=== PATIENT | female | born 1980 | race Caucasian/White ===

== ENCOUNTER 2016-12-07 11:01 | Inpatient (IN) | payer BC ==
[~2016-12-07] VITALS: Ht 157.5 cm; Wt 78.0 kg
[2016-12-07] VITALS (12 sets, daily range): BP systolic 138–179; BP diastolic 75–111
[2016-12-07 12:41] LABS: EOSINOPHIL (%) 0.4 % (0-5); HEMATOCRIT 40.3 % (36.0-46.0); IMMATURE GRANULOCYTE (%) 0.4 % (0.0-0.7); LYMPHOCYTE COUNT 1.3 K/uL (1.0-2.8); MCH 32.4 PG (29.0-34.0); MCHC 34.2 G/DL (30.0-36.0); MCV 94.6 FL (83-99); MEAN PLAT.VOLUME 11.9 uM^3 (9.5-12.4); MONOCYTE (%) 9.3 % (3-12); MONOCYTE COUNT 0.7 K/uL (0-0.8); PLATELET COUNT 117 K/uL (156-360); RBC DIS.WIDTH-CV 14.3 % (11.8-14.6); RBC DIS.WIDTH-SD 48.2 % (39-53); RED BLOOD COUNT 4.26 M/uL (3.80-5.20); WHITE BLOOD COUNT 7.1 K/uL (4.1-10.2)
[2016-12-07 13:09] LABS: ALKALINE PHOSPHATASE 227 IU/L (3-129); ANION GAP 9 MEQ/L (2-14); CHLORIDE 109 MEQ/L (99-109); GFR ESTIMATE (CALCULATED) > 59 mL/min/; GLUCOSE 77 mg/dL (70-99); POTASSIUM 4.2 MEQ/L (3.7-5.4); SAMPLE HEMOLYSIS CHECK 0; SAMPLE ICTERIC CHECK 0; SAMPLE LIPEMIA CHECK 0; SODIUM 139 MEQ/L (136-147); TOTAL BILIRUBIN 0.5 MG/DL (0.0-1.0); UREA NITROGEN (BUN) 25 mg/dL (9-23)
[2016-12-07 19:47] LABS: POINT-OF-CARE METER ID UU13113675
[2016-12-08] VITALS (18 sets, daily range): BP systolic 107–128; BP diastolic 64–86
[2016-12-08 00:47] LABS: EOSINOPHIL (%) 0 % (0-5); HEMATOCRIT 37.8 % (36.0-46.0); IMMATURE GRANULOCYTE (%) 0.5 % (0.0-0.7); IMMATURE GRANULOCYTE COUNT 0.1 K/uL; INSTRUMENT ABS NEUTROPHIL CT 15.5 K/uL; LYMPHOCYTE COUNT 1.2 K/uL (1.0-2.8); MCH 31.7 PG (29.0-34.0); MCHC 33.6 G/DL (30.0-36.0); MCV 94.3 FL (83-99); MEAN PLAT.VOLUME 12.9 uM^3 (9.5-12.4); MONOCYTE (%) 4.6 % (3-12); MONOCYTE COUNT 0.8 K/uL (0-0.8); NEUTROPHIL (%) 88.1 % (45-76); NEUTROPHIL COUNT 15.5 K/uL (1.8-6.4); RBC DIS.WIDTH-CV 14.1 % (11.8-14.6); RBC DIS.WIDTH-SD 48.8 % (39-53); RED BLOOD COUNT 4.01 M/uL (3.80-5.20); WHITE BLOOD COUNT 17.6 K/uL (4.1-10.2)
[2016-12-08 00:48] LABS: PLATELET COUNT 156 K/uL (156-360)
[2016-12-08 00:53] LABS: CHLORIDE 106 mEq/L (99-109); POTASSIUM 4.1 mEq/L (3.7-5.4); SODIUM 135 mEq/L (136-147)
[2016-12-08 00:57] LABS: ANION GAP 11 MEQ/L (2-14); TOTAL BILIRUBIN 0.5 mg/dL (0.0-1.0)
[2016-12-08 00:59] LABS: ALKALINE PHOSPHATASE 198 IU/L (3-129); GFR ESTIMATE (CALCULATED) > 59 mL/min/
[2016-12-08 01:00] LABS: UREA NITROGEN (BUN) 19 mg/dL (9-23)
[2016-12-08 01:11] LABS: GLUCOSE 117 mg/dL (70-99)
[2016-12-08 01:12] LABS: MAGNESIUM 5.3 mg/dL (1.3-2.7)
[2016-12-08 07:44] LABS: EOSINOPHIL (%) 0 % (0-5); HEMATOCRIT 31.5 % (36.0-46.0); IMMATURE GRANULOCYTE (%) 0.4 % (0.0-0.7); IMMATURE GRANULOCYTE COUNT 0.1 K/uL; INSTRUMENT ABS NEUTROPHIL CT 10.6 K/uL; LYMPHOCYTE COUNT 1.7 K/uL (1.0-2.8); MCH 32.2 PG (29.0-34.0); MCHC 33.7 G/DL (30.0-36.0); MCV 95.7 FL (83-99); MEAN PLAT.VOLUME 12.3 uM^3 (9.5-12.4); MONOCYTE COUNT 0.9 K/uL (0-0.8); NEUTROPHIL (%) 79.6 % (45-76); NEUTROPHIL COUNT 10.6 K/uL (1.8-6.4); PLATELET COUNT 128 K/uL (156-360); RBC DIS.WIDTH-CV 14.4 % (11.8-14.6); RBC DIS.WIDTH-SD 49.7 % (39-53); RED BLOOD COUNT 3.29 M/uL (3.80-5.20); WHITE BLOOD COUNT 13.3 K/uL (4.1-10.2)
[2016-12-08 08:12] LABS: ANION GAP 7 MEQ/L (2-14); CHLORIDE 101 MEQ/L (99-109); GFR ESTIMATE (CALCULATED) > 59 mL/min/; POTASSIUM 4.5 MEQ/L (3.7-5.4); SAMPLE HEMOLYSIS CHECK 0; SAMPLE ICTERIC CHECK 0; SAMPLE LIPEMIA CHECK 0; SODIUM 129 MEQ/L (136-147); TOTAL BILIRUBIN 0.5 MG/DL (0.0-1.0); UREA NITROGEN (BUN) 18 mg/dL (9-23); URIC ACID 8.6 mg/dL (3.1-9.2)
[2016-12-08 08:13] LABS: ALKALINE PHOSPHATASE 156 IU/L (3-129); GLUCOSE 80 mg/dL (70-99); MAGNESIUM 6.3 mg/dl (1.3-2.7)
[2016-12-09] VITALS (8 sets, daily range): BP systolic 130–162; BP diastolic 81–100
[2016-12-10] VITALS (9 sets, daily range): BP systolic 135–179; BP diastolic 84–105
[2016-12-10] MEDS ORDERED: PROCARDIA XL60 MG PO (09:10)
[2016-12-11] VITALS (7 sets, daily range): BP systolic 126–172; BP diastolic 77–94
[2016-12-11 10:06] LABS: EOSINOPHIL (%) 2.5 % (0-5); EOSINOPHIL COUNT 0.2 K/uL (0-0.3); HEMATOCRIT 32.9 % (36.0-46.0); IMMATURE GRANULOCYTE (%) 0.3 % (0.0-0.7); INSTRUMENT ABS NEUTROPHIL CT 6.1 K/uL; MCH 32.1 PG (29.0-34.0); MCHC 32.2 G/DL (30.0-36.0); MEAN PLAT.VOLUME 11.2 uM^3 (9.5-12.4); MONOCYTE (%) 5.8 % (3-12); MONOCYTE COUNT 0.5 K/uL (0-0.8); NEUTROPHIL (%) 78.8 % (45-76); NEUTROPHIL COUNT 6.1 K/uL (1.8-6.4); PLATELET COUNT 150 K/uL (156-360); RBC DIS.WIDTH-CV 14.7 % (11.8-14.6); RBC DIS.WIDTH-SD 54.2 % (39-53); WHITE BLOOD COUNT 7.8 K/uL (4.1-10.2)
[2016-12-11 10:12] LABS: MCV 99.7 FL (83-99)
[2016-12-11 10:23] LABS: ALKALINE PHOSPHATASE 134 IU/L (3-129); ANION GAP 10 MEQ/L (2-14); CHLORIDE 105 MEQ/L (99-109); GFR ESTIMATE (CALCULATED) > 59 mL/min/; GLUCOSE 124 mg/dL (70-99); POTASSIUM 3.8 MEQ/L (3.7-5.4); SAMPLE HEMOLYSIS CHECK 0; SAMPLE ICTERIC CHECK 0; SAMPLE LIPEMIA CHECK 0; SODIUM 139 MEQ/L (136-147); TOTAL BILIRUBIN 0.8 MG/DL (0.0-1.0); UREA NITROGEN (BUN) 15 mg/dL (9-23)
[2016-12-11] MEDS ORDERED: LABETALOL HCL200 MG PO (10:35)
[2016-12-11] MEDS ORDERED: DOCUSATE SODIU100 MG PO (10:36)
[2016-12-11] MEDS ORDERED: PRENATAL TABLE1 EAC3 PO (10:36)
[2016-12-11] MEDS ORDERED: ENDOCET 5-3251 EACH PO (10:36)
== END 2016-12-11 19:15 | disposition home or self-care (01) | DRG 765 ==
LOC: LDRP-OP 11:01 → 2WEST 11:02 → LDRP-OP 02-06 14:43
PROVIDERS: Nurse Practitioner; Obstetrics & Gynecology; Obstetrics & Gynecology Gynecology
PROC: 0UB70ZZ Excision of Bilateral Fallopian Tubes, Open Approach (ICD-10-PCS; principal; 2016-12-07)
PROC: 10D00Z1 Extraction of Products of Conception, Low, Open Approach (ICD-10-PCS; principal; 2016-12-07)
DX: O14.24 HELLP syndrome, complicating childbirth (principal); O76 Abnormality in fetal heart rate and rhythm complicating labor and delivery; O34.211 Maternal care for low transverse scar from previous cesarean delivery; O69.81X0 Labor and delivery complicated by cord around neck, without compression, not applicable or unspecified; O36.5930 Maternal care for other known or suspected poor fetal growth, third trimester, not applicable or unspecified; O24.420 Gestational diabetes mellitus in childbirth, diet controlled; Z88.0 Allergy status to penicillin; Z30.2 Encounter for sterilization; Z3A.35 35 weeks gestation of pregnancy; Z37.0 Single live birth
CPT/HCPCS: 80053; 82570; 82948; 83735; 84156; 84550; 85025; 85025 91; 86900; 86901; 88302; 88307; J0360; J1100; J1200; J1580; J1885; J2274; J2405; J3475; J7050; J7120